=== PATIENT | female | born 1945 | race Caucasian/White ===

== ENCOUNTER → 2023-09-24 | Outpatient (CLI) | payer MEDICARE, SELFPAY ==
--- NOTE | 2023-09-24 14:17 | RAD_ITS ---
STUDY: X-RAY - RIGHT SHOULDER REASON FOR EXAM: Female, 78 years old. PAIN/STIFFNESS TECHNIQUE: 4 view(s) of the shoulder. COMPARISON: None. FINDINGS: Narrowed glenohumeral articulation. Normal acromioclavicular joint. Normal acromion. Normal humeral head and visualized proximal humerus. The soft tissue structures are unremarkable. Normal visualized pulmonary apex. RAD/Shoulder min 2 Views IMPRESSION: Mild degenerative change. No acute fracture or other significant bony pathology Electronically Signed: Ricky Celestin MD at 16:14 EDT ,
== END | disposition home or self-care (01) ==
PROVIDERS: PCP Family Medicine; Referring Provider Family Medicine; Visit Provider Family Medicine
DX: M19.011 Primary osteoarthritis, right shoulder (principal)
CPT/HCPCS: 73030

== ENCOUNTER → 2023-10-03 | Outpatient (CLI) | payer MEDICARE, SELFPAY ==
--- NOTE | 2023-10-03 11:15 | LES_PTH ---
PATIENT: LACEY LIU LOC: [facility] U#:[id number] AGE/SX: 78/F ROOM: RE10/03/[address]: Dr. Sarahi Hector MD : 1945 BED: DIS: 10/03/2023 SPEC #: [id number] RECD: 10/03/23 15:14 STATUS: LEI BEN #: [id number] ETIENNE: 10/03/23 11:[address]: Sarahi Hector DEPT: SURGICAL PATHOLOGY RECD BY: Babita Carcamo Tissues: Skin of forehead Procedures: Surgery Specimen Level IV HEADER OPERATION: 2 mm punch PRE-OP DIAGNOSIS: AK vs SCC, diffuse patch on forehead TISSUE SUBMITTED: 2 mm punch biopsy forehead MICROSCOPIC DIAGNOSIS Skin lesion of forehead, punch biopsy: Mild nonspecific dermatitis. No evidence of malignancy. See comment. AM:andie 10/07/2023 COMMENT Sections show superficial dermal and chronic inflammation consisting primarily of lymphocytes. No obvious vasculitis is identified. Clinical correlation is suggested. MICROSCOPIC DESCRIPTION Slides are reviewed. GROSS DESCRIPTION Received is one container labeled with the patient's name and not further designated. The specimen consists of a single irregular fragment of erwin tissue measuring 0.1 x <0.1 x <0.1 cm. The specimen is totally submitted in one cassette. / AM:andie 10/06/2023 TC:3 CPT: 69079
== END | disposition home or self-care (01) ==
LOC: LABSPEC 13:14
PROVIDERS: PCP Family Medicine; Referring Provider Family Medicine; Visit Provider Family Medicine
DX: L98.9 Disorder of the skin and subcutaneous tissue, unspecified (principal)
CPT/HCPCS: 88305

== ENCOUNTER → 2024-05-25 | Outpatient (CLI) | payer MEDICARE, SELFPAY ==
[2024-05-25 17:44] LABS: Absolute Lymphocyte Count 2.23 X10^3/uL (0.83-4.51); Basophil# 0.05 X10^3/uL; Basophil% 0.6 % (0-1); Eosinophil# 0.05 X10^3/uL; Eosinophils% 0.6 % (0-5); Hematocrit 46.2 % (37-47); Hemoglobin 14.8 g/dL (12.0-15.0); Lymphocyte # 2.23 X10^3/ul (0.83-4.51); Lymphocyte % 27.8 % (19-41); Mean Corpuscular Hgb 29.6 pg (27.0-32.0); Mean Corpuscular Volume 92.4 fL (81-99); Mean Platelet Vol. 11.8 fl (6.2-12.0); Monocyte# 0.65 X10^3/uL; Monocyte% 8.1 % (0-10); NRBC Flagged by Analyzer 0 % (0-5); Neutrophil # 5.03 X10^3/uL (2.7-7.7); Neutrophil % 62.7 % (47-70); Platelet Count 289 K/mm3 (150-450); RBC Distribution Width CV 12.4 % (11.6-14.6); RBC Distribution Width SD 42.4 fl (35.1-43.9)
[2024-05-25 18:07] LABS: ALB/GLOB Ratio 1.2 RATIO (0.9-2.4); AST(SGOT) 21 U/L (15-37); Alanine Aminotransfer ALT/SGPT 25 U/L (13-56); Albumin, Serum 4.1 g/dL (3.2-5.0); Alkaline Phosphatase 81 U/L (45-117); Anion Gap 10 (5-15); BUN 15 mg/dL (7-18); Calcium,Total 9.4 mg/dL (8.5-10.1); Chloride 106 mmol/L (98-107); Cholesterol 280 mg/dL (200); Creatinine, Serum 0.79 mg/dL (0.55-1.02); EST Glomerular Filtration Rate 75 mL/min (>60); Est Glom Filt Rate - Afr Amer 91 mL/min (>60); Globulin 3.5 g/dL (2.2-4.2); Glucose 88 mg/dL (74-106); High Density Lipoprotein 79 mg/dL; Magnesium 2.3 mg/dL (1.6-2.6); Potassium 3.8 mmol/L (3.5-5.1); Protein, Total 7.6 g/dL (6.4-8.2); Sodium Level 139 mmol/L (136-145); Triglycerides 135 mg/dL; Very Low Density Lipoprotein 27 mg/dL (5-40)
== END | disposition home or self-care (01) ==
LOC: BFHLAB 15:29
PROVIDERS: PCP Family Medicine; Referring Provider Family Medicine; Visit Provider Family Medicine
DX: R07.9 Chest pain, unspecified (principal); I10 Essential (primary) hypertension; E78.5 Hyperlipidemia, unspecified; R06.02 Shortness of breath
CPT/HCPCS: 36415; 80053; 80061; 83735; 83880; 85025

== ENCOUNTER → 2024-06-16 | Outpatient (CLI) | payer MEDICARE, SELFPAY ==
--- NOTE | 2024-06-16 06:49 | ECHOD_ITS ---
Reason For Study: CHEST PAIN Procedure This was a 2D Doppler, Color Flow transthoracic echocardiogram. Exam performed in department. Left Ventricle Normal left ventricle. Left ventricular systolic function is normal. The left ventricular ejection fraction is 65 %. Stage 1 diastolic dysfunction. No regional wall motion abnormalities noted. Right Ventricle Normal RV size. Normal systolic function. Atria Normal left atrium. Normal right atrium. Mitral Valve Normal mitral valve. Mild-Moderate (1-2+) mitral valve insufficiency. Tricuspid Valve Normal tricuspid valve. Mild tricuspid valve insufficiency. Pulmonary artery systolic pressure is 23 mmHg. Aortic Valve Trisinus/trileaflet aortic valve. Pulmonic Valve Normal pulmonic valve. Great Vessels Normal aortic root. The pulmonary artery is normal size. Inferior vena cava collapse with sniff. Pericardium/Pleural No pericardial effusion. MMode/2D Measurements & Calculations LVIDd: 3.9 cm IVSd: 1.00 cm CO(Teich): 4.5 l/min LVIDs: 2.6 cm LVPWd: 0.81 cm RVDd: 2.8 cm FS: 34.2 % Ao root diam: 2.7 cm LAV(MOD-bp): 32.8 ml LVAd ap4: 19.3 cm2 LAV(MOD-bp) Indexed: 20.5 ml/m2 LVLd ap4: 6.2 cm LAV(MOD-sp2): 31.7 ml EDV(MOD-sp4): 49.7 ml LAV(MOD-sp4): 34.7 ml EDV(sp4-el): 50.8 ml LVAs ap4: 11.0 cm2 LVLs ap4: 5.3 cm ESV(MOD-sp4): 19.8 ml ESV(sp4-el): 19.3 ml EF(MOD-sp4): 60.1 % EF(sp4-el): 62.0 % LVAd ap2: 19.5 cm2 CO(MOD-sp4): 3.3 l/min SV(MOD-sp2): 32.5 ml LVLd ap2: 6.3 cm SV(MOD-sp4): 29.9 ml EDV(MOD-sp2): 50.8 ml EDV(sp2-el): 51.1 ml LVAs ap2: 10.6 cm2 LVLs ap2: 5.3 cm ESV(MOD-sp2): 18.3 ml ESV(sp2-el): 18.0 ml EF(MOD-sp2): 63.9 % SV(sp4-el): 31.5 ml LA dimension(2D): 3.4 cm LA A4 area: 14.2 cm2 RA A4 area: 10.9 cm2 TAPSE: 1.8 cm Time Measurements MV dec time: 0.22 sec Doppler Measurements & Calculations MV E max alfredo: 66.7 cm/sec Lat Peak E' Alfredo: 7.7 cm/sec Med Peak E' Alfredo: 6.5 cm/sec MV A max alfredo: 76.9 cm/sec E/E' lat: 8.7 E/E' med: 10.3 MV E/A: 0.87 MV V2 max: 89.3 cm/sec MV P1/2t max alfredo: 72.9 cm/sec Ao V2 max: 117.4 cm/sec MV max P.2 mmHg MV P1/2t: 67.8 msec Ao max P.5 mmHg MV V2 mean: 42.0 cm/sec Ao V2 mean: 83.0 cm/sec MV mean P.85 mmHg MV dec slope: 315.1 cm/sec2 Ao mean P.0 mmHg MV V2 VTI: 22.9 cm MVA(P1/2t): 3.2 cm2 Ao V2 VTI: 26.4 cm AV (velocity ratio): 0.91 AI max alfredo: 339.2 cm/sec LV V1 max: 105.4 cm/sec PA V2 max: 87.9 cm/sec AI max P.0 mmHg LV V1 max P.4 mmHg PA V2 mean: 63.0 cm/sec AI dec slope: 165.4 cm/sec2 LV V1 mean P.5 mmHg AI P1/2t: 600.6 msec LV V1 mean: 75.3 cm/sec LV V1 VTI: 24.0 cm TR max alfredo: 223.3 cm/sec TR max P.9 mmHg ECHO/Echo Complete Interpretation Summary Normal left ventricle. Left ventricular systolic function is normal. The left ventricular ejection fraction is 65 %. Stage 1 diastolic dysfunction. Mild-Moderate (1-2+) mitral valve insufficiency. Ordering Physician: Monet Thurman Referring Physician: Sarahi Hector Performed By: Tootie Jernigan, RDCS, RVT
== END | disposition home or self-care (01) ==
PROVIDERS: PCP Family Medicine; Referring Provider Nurse Practitioner Family; Visit Provider Nurse Practitioner Family
DX: R07.9 Chest pain, unspecified (principal)
CPT/HCPCS: 93306

== ENCOUNTER → 2024-09-24 | Outpatient (CLI) | payer MEDICARE, SELFPAY ==
--- NOTE | 2024-09-24 10:59 | RAD_ITS ---
INDICATION: RIGHT FOOT PAIN/ SWELLING EXAMINATION/TECHNIQUE: X-RAY - RIGHT XR Foot Min 3 Views 3 VIEWS COMPARISON: No relevant prior comparison study available FINDINGS: SOFT TISSUES: No soft tissue swelling or gas. No radiopaque foreign body. BONES/JOINTS: No acute fracture or subluxation.. Normal alignment. Preservation of the joint space.. No sclerotic or destructive changes observed. Mild hypertrophic spurring of the plantar aponeurosis and Achilles insertion to the calcaneus. RAD/Foot min 3 Views IMPRESSION: No fracture or malalignment. Small heel spurs. Electronically Signed: Gerardo Cid MD at 1:14 EDT ,
== END | disposition home or self-care (01) ==
LOC: MTRAD 10:58
PROVIDERS: PCP Family Medicine; Referring Provider Family Medicine; Visit Provider Family Medicine
DX: M79.671 Pain in right foot (principal)
CPT/HCPCS: 73630